=== PATIENT | male | born 1990 | race Caucasian/White ===

== ENCOUNTER 2020-07-04 20:16 | Emergency (ER) | payer SELFPAY ==
[~2020-07-04] VITALS: Ht 167.6 cm; Wt 80.7 kg
[2020-07-04 20:23] VITALS: BP 133/83; Ht 167.6 cm; Wt 80.7 kg
== END 2020-07-04 21:57 | disposition home or self-care (01) ==
LOC: ED 20:16
DX: F41.9 Anxiety disorder, unspecified (principal)